=== PATIENT | male | born 1960 | race Caucasian/White ===

== ENCOUNTER → 2018-05-15 | Outpatient (CLI) | payer OTHER ==
[~2018-05-15] MED LIST: Allergy Medicat25 MG; Buspirone HCl10 MG PO; ESOM20; FISH OIL 1,0001 EAC1; Multiple Vitam1 EAC1; TEMA15 PO
== END | disposition home or self-care (01) ==
LOC: LAB SHORT 11:04 → PLD 11:04
DX: L81.4 Other melanin hyperpigmentation (principal); D22.61 Melanocytic nevi of right upper limb, including shoulder
CPT/HCPCS: 88305

== ENCOUNTER → 2019-04-23 | Outpatient (CLI) | payer MEDICARE, OTHER | LOC: LAB SHORT 07:43 → PLD 07:43 | DX: L92.8 Other granulomatous disorders of the skin and subcutaneous tissue (principal); R68.89 Other general symptoms and signs | CPT/HCPCS: 88305; 88312; 88313 ==

== ENCOUNTER 2020-09-02 11:33 | Emergency (ER) | payer MEDICARE, OTHER ==
[~2020-09-02] VITALS: Ht 177.8 cm; Wt 106.6 kg
[~2020-09-02 11:33] MED LIST changes: +ABILIFY MYCITE5 M1 PO; +ALBU90OI6 INH; +ALLO100 PO; +ATOR10 PO; +LOSA25 PO; +NASONEX17 G1; +PARO30 PO; +TRAZ50 PO
[2020-09-02 12:22] LABS: BASOPHILS ABSOLUTE AUTO 0.02 K/mm3 (0.00-0.23); BASOPHILS PERCENT AUTO 0 % (0-2); EOSINOPHILS ABSOLUTE AUTO 0.01 K/mm3 (0.00-0.68); EOSINOPHILS PERCENT AUTO 0 % (0-6); Hematocrit 38.2 % (37.0-53.0); Hemoglobin 13.4 g/dL (13.5-17.5); IMMATURE GRAN ABSOLUTE AUTO 0.05 K/mm3 (0.00-0.10); IMMATURE GRAN PERCENT AUTO 1 % (0-1); LYMPHOCYTES ABSOLUTE AUTO 0.46 K/mm3 (0.84-5.20); LYMPHOCYTES PERCENT AUTO 5 % (21-46); MONOCYTES ABSOLUTE AUTO 0.79 K/mm3 (0.16-1.47); MONOCYTES PERCENT AUTO 9 % (4-13); Mean Corpuscular HGB Conc 35.1 g/dL (31.5-36.5); Mean Corpuscular Volume 97 fL (80-100); NEUTROPHILS ABSOLUTE AUTO 7.39 K/mm3 (1.96-9.15); NEUTROPHILS PERCENT AUTO 85 % (41-73); Platelet Count 151 K/mm3 (150-400); RDW Coefficient Variation 12.3 % (11.7-14.2); RDW Standard Deviation 43.8 fL (35.1-46.3); Red Blood Cell Count 3.94 M/mm3 (4.30-5.90); White Blood Cell Count 8.72 K/mm3 (4.00-11.30)
[2020-09-02 12:30] LABS: Albumin, Blood 3.2 g/dL (3.4-5.0); Albumin/Globulin Ratio 0.7 (0.8-1.8); Bilirubin, Total 0.9 mg/dL (0.1-1.0); Bun/Creatinine Ratio 18.5 (12.0-20.0); Calcium, Blood 8.4 mg/dL (8.5-10.1); Creatinine, Blood 1.57 mg/dL (0.60-1.20); Globulin, Blood 4.4 g/dL (2.2-4.0); Total Protein, Blood 7.6 g/dL (6.4-8.2); Troponin I 0.032 ng/mL (0.000-0.040)
[2020-09-02 13:49] LABS: Mean Platelet Volume 13.2 fL (9.1-12.4)
[2020-09-02] MEDS ORDERED: IMBRUVICA140 MG PO (14:20)
[2020-09-02] MEDS ORDERED: METFORMIN HCL500 M2 PO (14:20)
[2020-09-02] MEDS ORDERED: PAXIL40 M1 PO (14:21)
[2020-09-02] MEDS ORDERED: Buspirone HCl15 MG PO (14:21)
[2020-09-02] MEDS ORDERED: TRAZ100 PO (14:22)
[2020-09-02] MEDS ORDERED: ATORVASTATIN CA20 MG PO (14:22)
[2020-09-02] MEDS ORDERED: LOSA50 PO (14:23)
[2020-09-02] MEDS ORDERED: ELIQUIS5 M2 PO (15:54)
[2020-09-02] MEDS ORDERED: Cardizem Cd180 MG PO (15:54)
== END 2020-09-02 16:27 | disposition home or self-care (01) ==
LOC: ER 11:33
PROVIDERS: Emergency Medicine
DX: U07.1 COVID-19 (principal); I48.91 Unspecified atrial fibrillation; J06.9 Acute upper respiratory infection, unspecified; R91.8 Other nonspecific abnormal finding of lung field; G47.34 Idiopathic sleep related nonobstructive alveolar hypoventilation; Z79.899 Other long term (current) drug therapy
CPT/HCPCS: 71045; 71046; 71260; 80048; 80053; 84443; 84484; 85025; 93005; 93010; 96374; 99285-25; A9270; J7030; Q9967

== ENCOUNTER → 2020-09-02 | Outpatient (CLI) | payer MEDICARE, OTHER | END | disposition home or self-care (01) | LOC: LAB 10:52 | DX: J06.9 Acute upper respiratory infection, unspecified (principal); G47.34 Idiopathic sleep related nonobstructive alveolar hypoventilation ==